=== PATIENT | male | born 1930 | race Caucasian/White ===

== ENCOUNTER 2018-08-08 15:12 | Observation (INO) | payer OTHER ==
[~2018-08-08] VITALS: Ht 172.7 cm; Wt 76.2 kg
[2018-08-08 16:09] LABS: BASOPHILS % (AUTO) 0.3 % (0.0-5.0); EOSINOPHILS % (AUTO) 0.8 % (0.0-8.0); HEMATOCRIT 41.1 % (42-54); LYMPHOCYTES % (AUTO) 8.2 % (21.0-51.0); MEAN CORPUSCULAR HEMOGLOBIN 33.8 pg (27.0-33.0); MEAN CORPUSCULAR HGB CONC 33.5 g/dL (32.0-36.0); MEAN CORPUSCULAR VOLUME 100.7 fL (79-99); MONOCYTES % (AUTO) 12.3 % (3.0-13.0); NEUTROPHILS % (AUTO) 78.4 % (40.0-77.0); PLATELET COUNT (AUTO) 189 K/uL (130-400); RED BLOOD CELL COUNT(AUTO) 4.08 MIL/uL (4.50-6.20); RED CELL DISTRIBUTION WIDTH 14.1 % (11.0-15.5); WHITE BLOOD COUNT (AUTO) 9.4 K/uL (4.8-10.8)
[2018-08-08 16:19] LABS: CREATININE 1.1 mg/dL (0.5-1.5); POTASSIUM 4.7 mmol/L (3.5-5.1)
[2018-08-08 16:22] LABS: INR 1.12 (0.85-1.15); PARTIAL THROMBOPLASTIN TIME 30.1 SEC (26.3-35.5); PROTHROMBIN TIME 11.7 SEC (9.6-11.6)
[2018-08-08] MEDS ORDERED: SODIUM CHLORIDE 0.9% 50 ML IV ONE (17:24)
[2018-08-08] MEDS ORDERED: ACETAMINOPHEN 325 MG TAB PO PRN ×2 (20:30→21:30)
[2018-08-08] MEDS ORDERED: ONDANSETRON HCL 4 MG/2 ML VIAL IV PRN (20:30)
[2018-08-08 21:25] VITALS: BP 136/81
[2018-08-08] MEDS: PHARMACY COMMUNICATION MISC SCH (21:30)
[2018-08-08] MEDS: SODIUM CHLORIDE 0.9% 1000ML 1,000 ML IV SCH (23:18)
[2018-08-08] MEDS: PANTOPRAZOLE SODIUM 80 MG in SODIUM CHLORIDE 0.9% 100 ML IV SCH (23:18)
[2018-08-09 00:25] VITALS: BP 90/61
[2018-08-09] MEDS: PHARMACY COMMUNICATION MISC SCH ×5 (01:30→17:44)
[2018-08-09 03:42] VITALS: BP 104/56
[2018-08-09 05:53] LABS: BASOPHILS % (AUTO) 0.3 % (0.0-5.0); EOSINOPHILS % (AUTO) 1.3 % (0.0-8.0); HEMATOCRIT 37.4 % (42-54); LYMPHOCYTES % (AUTO) 8.4 % (21.0-51.0); MEAN CORPUSCULAR HEMOGLOBIN 34.5 pg (27.0-33.0); MEAN CORPUSCULAR HGB CONC 34.5 g/dL (32.0-36.0); MONOCYTES % (AUTO) 13.2 % (3.0-13.0); NEUTROPHILS % (AUTO) 76.8 % (40.0-77.0); PLATELET COUNT (AUTO) 153 K/uL (130-400); RED BLOOD CELL COUNT(AUTO) 3.74 MIL/uL (4.50-6.20); RED CELL DISTRIBUTION WIDTH 13.9 % (11.0-15.5); WHITE BLOOD COUNT (AUTO) 7.4 K/uL (4.8-10.8)
[2018-08-09 06:01] LABS: INR 1.14 (0.85-1.15); PARTIAL THROMBOPLASTIN TIME 32.7 SEC (26.3-35.5); PROTHROMBIN TIME 11.9 SEC (9.6-11.6)
[2018-08-09] MEDS: SODIUM CHLORIDE 0.9% 1000ML 1,000 ML IV SCH ×3 (06:42→17:44)
[2018-08-09 08:00] VITALS: BP 137/71
[2018-08-09] MEDS ORDERED: DIATR MEGLU/DIATRIZOATE SODIUM 30 ML BOTTLE ONE (08:11)
[2018-08-09] MEDS: PANTOPRAZOLE SODIUM 80 MG in SODIUM CHLORIDE 0.9% 100 ML IV SCH ×2 (09:56→16:49)
[2018-08-09 12:00] VITALS: BP 129/76
--- NOTE | 2018-08-09 12:17 | NUR ---
DCP CM met with pt discussed dc plans. Pt is mostly independent prior to admission, lives at home alone, states he has a friend that assist who lives close by. Pt has an electric wheelchair, shower chair, walker, and wheelchair. Feels safe to go back home, still drives, states he takes care of his own stuff, fiend able to assist with transportation as necessary. DC plan to home once stable. CM to cont to follow up. Addendum: 08/09/18 at 1219 by ILENE OLVERA LVN CM Amended: Links added.
[2018-08-09 16:00] VITALS: BP 129/74
[2018-08-09] MEDS ORDERED: GABA300S PO (18:54)
[2018-08-09] MEDS ORDERED: CARV12.511 PO (18:54)
[2018-08-09] MEDS ORDERED: ATOR40TA69 PO (18:54)
[2018-08-09] MEDS ORDERED: VITA1CAP85 PO (18:54)
[2018-08-09] MEDS ORDERED: OXYB5TAB10 PO (18:54)
[2018-08-09] MEDS ORDERED: ISOS10TA8 PO (18:54)
[2018-08-09 20:00] VITALS: BP 138/82
--- NOTE | 2018-08-09 21:27 | NUR ---
DANY TEJADA CIVIL SERVICE WORKER FOR HOSPITALIST, PAGED VIA ANSWERING SERVICE AND VERIFIED TYLENOL ORDER SINCE PHARMACY FLAGGED MED DUE TO PT'S ALLERGY TO MED. NEW MED ORDER RECEIVED, PLEASE REFER TO CPOE.
[2018-08-09] MEDS ORDERED: TRAMADOL HCL 50 MG TABLET PO PRN (21:45)
--- NOTE | 2018-08-09 23:00 | NUR ---
INSTRUCT PT ASSISTED TO THE RESTROOM THEN BACK TO BED. PT HAD BM COLORED BROWN, SOFT. NO NOTED BLEEDING AT THIS TIME. RE-ITERATED TO BE NPO POST MIDNIGHT, VERBALIZES UNDERSTANDING. PT'S PIV ACCIDENTALLY CAME OFF VEIN WITH CATHETER INTACT. RE-INSERTED G18 TO LFA THEN CONTINUED TO INFUSE NS AND PROTONIX DRIP. KEPT RESTED IN BED. WILL CONTINUE TO MONITOR. CALL LIGHT WITHIN REACH.
[2018-08-10] VITALS (17 sets, daily range): BP systolic 90–159; BP diastolic 41–93
--- NOTE | 2018-08-10 02:00 | NUR ---
ROUNDS PT RESTING WELL, FAIRLY ASLEEP WITH RESPIRATIONS EVEN AND UNLABORED. KEPT UNDISTURBED FOR NOW. KEPT NPO. WILL CONTINUE TO MONITOR.
[2018-08-10] MEDS: PANTOPRAZOLE SODIUM 80 MG in SODIUM CHLORIDE 0.9% 100 ML IV SCH (02:07)
[2018-08-10] MEDS: SODIUM CHLORIDE 0.9% 1000ML 1,000 ML IV SCH (02:51)
[2018-08-10 04:14] LABS: HEMATOCRIT 35.9 % (42-54); MEAN CORPUSCULAR HEMOGLOBIN 34.2 pg (27.0-33.0); MEAN CORPUSCULAR HGB CONC 33.9 g/dL (32.0-36.0); MEAN CORPUSCULAR VOLUME 100.8 fL (79-99); PLATELET COUNT (AUTO) 155 K/uL (130-400); RED BLOOD CELL COUNT(AUTO) 3.56 MIL/uL (4.50-6.20); RED CELL DISTRIBUTION WIDTH 14.2 % (11.0-15.5); WHITE BLOOD COUNT (AUTO) 6.7 K/uL (4.8-10.8)
--- NOTE | 2018-08-10 06:25 | NUR ---
GI PT TAKEN DOWN BY GI STAFF TO GI LAB FOR EGD.
--- NOTE | 2018-08-10 07:40 | NUR ---
REPORT [facility] PRODUCTION PLANNING MANAGER CALLED REPORT AND MANAGER WOUND CARE WAS MADE AWARE THAT NO BLEEDING NOR ULCERS WERE SEEN BY MD. ORDERS INCLUDE TO START ON CLEAR LIQUIDS THEN ADVANCE TOLERATED AND TO FOLLOW UP WITH DR MCINTYRE IN 7 DAYS. V/S REPORTED INCLUDE MD=195/64,HR=80, RR=20 AND 97% ON RA. PT IS ALREADY AAOX3.
--- NOTE | 2018-08-10 07:50 | NUR ---
RECEIVE PT BACK IN ROOM, AAOX3, DENIES ANY PAINS AT THIS TIME. PT WANTING TO EAT ALREADY. EXPLAINED THAT HE WILL BE STARTED ON CLEAR LIQUIDS THEN WILL BE ADVANCED. PCP INFORMED THAT PT IS POST OP. CALLED [facility] IN GI LAB AND ASKED IF MD STILL IN THE HOSPITAL SINCE PROTONIX WAS NOT ADDRESSED BY . STATED SHE WILL CALL .
[2018-08-10] MEDS ORDERED: PANTOPRAZOLE SODIUM 40 MG TABLET.DR PO SCH (08:30)
[2018-08-10] MEDS ORDERED: CARVEDILOL 12.5 MG TABLET PO SCH (09:00)
[2018-08-10] MEDS ORDERED: GABAPENTIN 300 MG CAPSULE PO SCH (09:00)
[2018-08-10] MEDS ORDERED: OXYBUTYNIN CHLORIDE 5 MG TABLET PO SCH (09:00)
[2018-08-10] MEDS ORDERED: ISOSORBIDE MONONITRATE 20 MG TABLET PO SCH (09:00)
[2018-08-10] MEDS ORDERED: VITAMIN B COMPLEX 1 CAPSULE PO SCH (09:00)
[2018-08-10] MEDS ORDERED: PANT40TA25 PO (10:19)
[2018-08-10] MEDS ORDERED: ATORVASTATIN CALCIUM 40 MG TABLET PO SCH (21:00)
== END 2018-08-10 13:50 | disposition home or self-care (01) ==
LOC: EDH 15:12 → EDHIP 19:10 → 3AH 21:22
PROVIDERS: ADMIT Internal Medicine; ATTEND Internal Medicine
DX: K92.2 Gastrointestinal hemorrhage, unspecified (principal); D62 Acute posthemorrhagic anemia; E78.5 Hyperlipidemia, unspecified; I10 Essential (primary) hypertension; I25.10 Atherosclerotic heart disease of native coronary artery without angina pectoris; Z79.01 Long term (current) use of anticoagulants; Z86.73 Personal history of transient ischemic attack (TIA), and cerebral infarction without residual deficits
CPT/HCPCS: 36415 ×3; 43235; 74176; 80048; 82270; 85025 ×2; 85027; 85610 ×2; 85730 ×2; 86850; 86900; 86901; 93005; 96365; 96366 ×2; 99284; A4600; A6250; C9113 ×4; G0378 ×43; J7030; Q9963

== ENCOUNTER 2018-10-07 12:39 | Observation (INO) | payer OTHER ==
[~2018-10-07] VITALS: Ht 170.2 cm; Wt 77.1 kg
[~2018-10-07 12:39] MED LIST: ATOR40TA69 PO; CARV12.511 PO; GABA300S PO; ISOS10TA8 PO; OXYB5TAB10 PO; PANT40TA25 PO; VITA1CAP85 PO
[2018-10-07] MEDS ORDERED: ONDANSETRON HCL 4 MG/2 ML VIAL ONE (13:20)
[2018-10-07] MEDS ORDERED: CEFAZOLIN SODIUM 1 GM VIAL ONE (13:20)
[2018-10-07] MEDS ORDERED: MORPHINE SULFATE 4 MG/1ML SYG ONE (13:21)
[2018-10-07 13:44] LABS: BASOPHILS % (AUTO) 0.4 % (0.0-5.0); EOSINOPHILS % (AUTO) 0.9 % (0.0-8.0); HEMATOCRIT 32.5 % (42-54); LYMPHOCYTES % (AUTO) 8.6 % (21.0-51.0); MEAN CORPUSCULAR HEMOGLOBIN 34.4 pg (27.0-33.0); MEAN CORPUSCULAR HGB CONC 34.3 g/dL (32.0-36.0); MEAN CORPUSCULAR VOLUME 100.5 fL (79-99); MONOCYTES % (AUTO) 16.2 % (3.0-13.0); NEUTROPHILS % (AUTO) 73.9 % (40.0-77.0); PLATELET COUNT (AUTO) 175 K/uL (130-400); RED BLOOD CELL COUNT(AUTO) 3.24 MIL/uL (4.50-6.20); RED CELL DISTRIBUTION WIDTH 16.4 % (11.0-15.5); WHITE BLOOD COUNT (AUTO) 7.1 K/uL (4.8-10.8)
[2018-10-07] MEDS ORDERED: ONDANSETRON HCL MDV 20ML 2 MG/ML VIAL IVP PRN (13:45)
[2018-10-07 13:54] LABS: CREATININE 1.1 mg/dL (0.5-1.5); POTASSIUM 4.1 mmol/L (3.5-5.1)
[2018-10-07 13:55] LABS: INR 1.16 (0.85-1.15); PARTIAL THROMBOPLASTIN TIME 31.8 SEC (26.3-35.5); PROTHROMBIN TIME 12.1 SEC (9.6-11.6)
[2018-10-07 13:58] LABS: ALBUMIN 3.3 g/dL (3.5-5.0); BILIRUBIN,TOTAL 0.8 mg/dL (0.2-1.0); TOTAL PROTEIN, SERUM 6.8 g/dL (6.0-8.3)
[2018-10-07] MEDS ORDERED: HYDROCODONE/ACETAMINOPHEN 5/325 MG TAB PO PRN (14:45)
[2018-10-07 15:22] VITALS: BP 154/116
[2018-10-07] MEDS: MORPHINE SULFATE 2 MG/ML 1ML SYG IV PRN (16:25)
[2018-10-07] MEDS ORDERED: FURO20TA4 PO (17:40)
[2018-10-07] MEDS ORDERED: VIT1CAPS47 PO (17:40)
[2018-10-07] MEDS ORDERED: ISOS20TA7 PO (17:40)
[2018-10-07] MEDS ORDERED: CARV12.511 PO (17:40)
[2018-10-07] MEDS ORDERED: LISI-617 PO (17:40)
[2018-10-07] MEDS ORDERED: VITA1CAP85 PO (17:40)
[2018-10-07] MEDS ORDERED: APIX5TAB PO (17:40)
[2018-10-07] MEDS ORDERED: ATOR40TA69 PO (17:40)
[2018-10-07] MEDS ORDERED: PANT40TA25 PO (17:40)
[2018-10-07] MEDS ORDERED: OXYB5TAB10 PO (17:40)
[2018-10-07] MEDS ORDERED: FAMOTIDINE/PF 20 MG/2 ML VIAL IV ONE (19:25)
[2018-10-07] MEDS: SODIUM CHLORIDE 0.9% 1000ML 1,000 ML IV SCH ×2 (19:46→23:39)
[2018-10-07] MEDS: FAMOTIDINE/PF 20 MG/2 ML VIAL IV SCH (19:46)
[2018-10-07 20:08] VITALS: BP 109/74
[2018-10-07] MEDS ORDERED: KETOROLAC TROMETHAMINE 15MG/ML ONE (20:38)
[2018-10-07] MEDS ORDERED: KETOROLAC TROMETHAMINE 15MG/ML IV SCH (20:45)
--- NOTE | 2018-10-07 21:30 | NUR ---
DRESSING CHANGED DRESSING RIGHT 2 ND FINGER, OPEN LACERATION WITH SMALL AMOUNT OF BLOOD DRAINING, BLOOD CLOTS NOTED, APPLY 4X4,KERLIX 2 INCH AND COBAN , REINFORCE TEACHING KEEP ELEVATED ABOVE HEART, APPLY ICE PACKS
[2018-10-08] VITALS (22 sets, daily range): BP systolic 123–176; BP diastolic 49–94
[2018-10-08] MEDS: MORPHINE SULFATE 2 MG/ML 1ML SYG IV PRN (00:09)
--- NOTE | 2018-10-08 04:00 | NUR ---
DRESSING CHANGED DRESSING RIGHT HAND 2ND FINGER WITH OPEN LACERATION WITH SMALL AMOUNT OF SEROS SANGUEIOUS DRAINAGE, APPLY PRESSURE X 10M MINUTES, APPLY 4X4, 2 INCH KERLIX AND COBAN DRESSING, REINFORCE TEACHING TO ELEVATE RIGHT HAND ABOVE HEART, APPLY ICE PACKS TO RIGHT HAND
[2018-10-08 06:26] LABS: HEMATOCRIT 35.4 % (42-54); MEAN CORPUSCULAR HGB CONC 33.9 g/dL (32.0-36.0); MEAN CORPUSCULAR VOLUME 100.4 fL (79-99); PLATELET COUNT (AUTO) 172 K/uL (130-400); RED BLOOD CELL COUNT(AUTO) 3.52 MIL/uL (4.50-6.20); RED CELL DISTRIBUTION WIDTH 16.3 % (11.0-15.5); WHITE BLOOD COUNT (AUTO) 6.5 K/uL (4.8-10.8)
--- NOTE | 2018-10-08 08:00 | NUR ---
REFUSES TO REMOVE JEWELRY PRIOR TO PROCEDURE PATIENT HAS 1 YELLOW COLORED RING AND 1 YELLOW COLORED WITH BLACK STONE RING TO LEFT HAND. PATIENT REFUSES TO REMOVE 2 RINGS. I OFFERED TO CALL SECURITY FOR SAFEKEEPING OF PERSONAL ITEMS AND PATIENT REFUSED AND STATES "MY LOST HER JEWELRY AT A HOSPITAL SO I DON'T TRUST ANYONE ENOUGH TO TAKE [JEWELRY] OFF."
[2018-10-08] MEDS ORDERED: ENOXAPARIN SODIUM 30 MG/0.3 ML SQ SCH (09:00)
[2018-10-08] MEDS: FAMOTIDINE/PF 20 MG/2 ML VIAL IV SCH (09:43)
[2018-10-08] MEDS: SODIUM CHLORIDE 0.9% 1000ML 1,000 ML IV SCH (10:02)
--- NOTE | 2018-10-08 10:11 | NUR ---
DR. LEE CALLED MD TO REPORTS PATIENT TAKES HOME MEDICATION ELIQUIS 5MG PO DAILY AND PATIENT REPORTED LAST DOSE TAKEN 10/07/18 AT 0500. ALSO INFORMED MD OF PATIENT CBC AND COAGULATION VALUES. MD REPLIED IT WAS OKAY TO PROCEED WITH PLANNED PROCEDURE TODAY.
[2018-10-08] MEDS ORDERED: ROPIVACAINE 0.5% 5MG/ML 30ML IJ ONE (12:21)
[2018-10-08] MEDS ORDERED: LIDOCAINE HCL 2% 20ML ONE (12:21)
[2018-10-08] MEDS ORDERED: CEFAZOLIN SODIUM 1 GM VIAL ONE (12:30)
[2018-10-08] MEDS ORDERED: MIDAZOLAM HCL 1 MG/ML 2ML VIAL ONE (12:45)
[2018-10-08] MEDS ORDERED: PROPOFOL 10 MG/ML 20ML VIAL IV ONE (12:50)
--- NOTE | 2018-10-08 17:30 | NUR ---
DISCHARGE DISCHARGE TEACHING PROVIDED TO PATIENT. PATIENT IS ALERT AND ORIENTED. RIGHT HAND SECOND DIGIT GAUZE DRESSING DRY AND INTACT, NO DRAINAGE NOTED, RIGHT ARM SPLINT IN PLACE. REMOVED 20G IV FROM LEFT, FA CATHETER INTACT. PATIENT DISPLAYS NO INTEREST WHILE PROVIDED WITH DISCHARGE TEACHING AND HOME INSTRUCTIONS. PROVIDED TEACHING ON HOME CARE INSTRUCTIONS, WARNING SIGNS/SYMPTOMS, NEED TO WEAR RIGHT ARM BRACE, AND HOSPITALIST RECOMMENDATIONS FOR PAIN CONTROL. NEED TO CALL OFFICE OF DR. LEE TO SCHEDULE F/U APPT. REPEATED INFORMATION 3 TIMES AND PATIENT WOULD IGNORE WHAT I WAS SAYING AND ASK QUESTIONS TO A FRIEND THAT WAS PRESENT TO DRIVE PATIENT HOME. I QUESTIONED PATIENT ON DISCHARGE TEACHING PROVIDED IN AN ATTEMPT TO GATHER FEEDBACK IF PATIENT UNDERSTOOD. PATIENT WAS PURPOSELY AVOIDING QUESTIONS AND AVOIDING LISTENING TO MY INSTRUCTIONS. PATIENT TO BE DRIVEN HOME BY HIS FRIEND. PATIENT LEFT HIS DISCHARGE FOLDER WITH PATIENT DISCHARGE INSTRUCTIONS IN HIS ROOM AFTER HIS DEPARTURE.
== END 2018-10-08 17:02 | disposition home or self-care (01) ==
LOC: EDH 12:39 → EDHIP 13:20 → INTOOBSV 13:20 → 4BH 14:56
PROVIDERS: ADMIT Internal Medicine; ATTEND Internal Medicine
DX: S62.630B Displaced fracture of distal phalanx of right index finger, initial encounter for open fracture (principal); W31.2XXA Contact with powered woodworking and forming machines, initial encounter; Y93.89 Activity, other specified; Y92.89 Other specified places as the place of occurrence of the external cause; Y99.8 Other external cause status; E78.00 Pure hypercholesterolemia, unspecified; E78.5 Hyperlipidemia, unspecified; I10 Essential (primary) hypertension; I25.10 Atherosclerotic heart disease of native coronary artery without angina pectoris; Z79.01 Long term (current) use of anticoagulants
CPT/HCPCS: 26765; 36415 ×2; 73140; 80053; 85025; 85027; 85610; 85730; 96374; 96375; 96376; 99284; A4218; A4565; A4649; A4930; A6223; A6445; A6446; G0168; G0378 ×28; J0690 ×2; J1885; J2250; J2270; J2405; J2704; J2795; J3490 ×3; J7120

== ENCOUNTER 2019-11-17 17:04 | Inpatient (IN) | payer OTHER ==
[~2019-11-17] VITALS: Ht 167.6 cm; Wt 79.6 kg
[~2019-11-17 17:04] MED LIST changes: +APIX5TAB PO; +FURO20TA4 PO; -GABA300S PO; -ISOS10TA8 PO; +ISOS20TA7 PO; +LISI-617 PO; -OXYB5TAB10 PO; +OXYB5TAB15 PO; -PANT40TA25 PO; +PANT40TA54 PO; +VIT1CAPS47 PO
[2019-11-17 18:02] LABS: BASOPHILS % (AUTO) 0.3 % (0.0-5.0); EOSINOPHILS % (AUTO) 0.1 % (0.0-8.0); HEMATOCRIT 35.8 % (42-54); LYMPHOCYTES % (AUTO) 7.1 % (21.0-51.0); MEAN CORPUSCULAR HEMOGLOBIN 33.8 pg (27.0-33.0); MEAN CORPUSCULAR HGB CONC 33.8 g/dL (32.0-36.0); MONOCYTES % (AUTO) 10.7 % (3.0-13.0); NEUTROPHILS % (AUTO) 81.2 % (40.0-77.0); PLATELET COUNT (AUTO) 198 K/uL (130-400); RED BLOOD CELL COUNT(AUTO) 3.58 MIL/uL (4.50-6.20); RED CELL DISTRIBUTION WIDTH 14.4 % (11.0-15.5); WHITE BLOOD COUNT (AUTO) 12.1 K/uL (4.8-10.8)
[2019-11-17 18:12] LABS: CREATININE 1.9 mg/dL (0.5-1.5); POTASSIUM 5.1 mmol/L (3.5-5.1)
[2019-11-17 18:13] LABS: INR 1.22 (0.85-1.15); PARTIAL THROMBOPLASTIN TIME 40.1 SEC (26.3-35.5); PROTHROMBIN TIME 13.1 SEC (9.6-11.6)
[2019-11-17 18:16] LABS: ALBUMIN 3.1 g/dL (3.5-5.0); BILIRUBIN,TOTAL 0.9 mg/dL (0.2-1.0); TOTAL PROTEIN, SERUM 7.3 g/dL (6.0-8.3)
[2019-11-17] MEDS ORDERED: ACETAMINOPHEN 325 MG TAB PO PRN ×4 (20:45→22:00)
[2019-11-17] MEDS ORDERED: ONDANSETRON HCL 4 MG/2 ML VIAL IV PRN (20:45)
--- NOTE | 2019-11-17 22:45 | NUR ---
PATIENT ARRIVED ON UNIT. C/O EPIGASTRIC DISCOMFORT SCORE . C/O SOB WITH EXERTION. 02 SATS 98%. PATIENT AWARE HE IS BEDREST AND NPO PER ORDERS. TOLERATING IV NS AND IV ANTIBIOTIC. PATIENT STATED HE HAD MULTIPLE BMs PRIOR TO COMING TO HOSPITAL. BM DESCRIBED NOT FORMED BUT NOT DIARRHEA.WILL CONTINUE TO MONITOR. DID NOT BRING HOME MEDS. UNABLE TO RECONCILE MEDS.
[2019-11-17 23:00] VITALS: BP 121/63
[2019-11-18] MEDS: CEFTRIAXONE SODIUM 1 GM IVP SCH ×3 (02:00→20:36)
[2019-11-18 04:00] VITALS: BP 132/66
[2019-11-18 04:37] LABS: BASOPHILS % (AUTO) 0.3 % (0.0-5.0); EOSINOPHILS % (AUTO) 0.7 % (0.0-8.0); LYMPHOCYTES % (AUTO) 9.1 % (21.0-51.0); MEAN CORPUSCULAR HEMOGLOBIN 33.1 pg (27.0-33.0); MEAN CORPUSCULAR HGB CONC 33.3 g/dL (32.0-36.0); MEAN CORPUSCULAR VOLUME 99.4 fL (79-99); MONOCYTES % (AUTO) 13.9 % (3.0-13.0); NEUTROPHILS % (AUTO) 75.5 % (40.0-77.0); PLATELET COUNT (AUTO) 152 K/uL (130-400); RED BLOOD CELL COUNT(AUTO) 3.32 MIL/uL (4.50-6.20); RED CELL DISTRIBUTION WIDTH 14.6 % (11.0-15.5); WHITE BLOOD COUNT (AUTO) 10.3 K/uL (4.8-10.8)
[2019-11-18 05:10] LABS: ALANINE AMINOTRANSFERASE 21 U/L (12-78); ALBUMIN 2.8 g/dL (3.5-5.0); ASPARTATE AMINOTRANSFERASE 22 U/L (10-37); BILIRUBIN,TOTAL 0.6 mg/dL (0.2-1.0); CARBON DIOXIDE 22 mmol/L (21-32); CHLORIDE 103 mmol/L (101-111); CREATINE KINASE, TOTAL 62 U/L (21-232); CREATININE 1.7 mg/dL (0.5-1.5); GLOMERULAR FILTR. RATE CALC 41 mL/min (>60); GLUCOSE,RANDOM 106 mg/dL (70-105); MYOGLOBIN 91 ng/mL (10-92); POTASSIUM 4.7 mmol/L (3.5-5.1); SODIUM SERUM 135 mmol/L (136-145); THYROID STIMULATING HORMONE 0.49 uIU/mL (0.36-3.74); TROPONIN I < 0.04 ng/mL (0.00-0.06); UREA NITROGEN, BLOOD 32 mg/dL (7-18)
[2019-11-18 08:00] VITALS: BP 140/59
[2019-11-18] MEDS ORDERED: ASPIRIN 81 MG EC TAB PO SCH ×2 (09:00)
[2019-11-18] MEDS: FAMOTIDINE/PF 20 MG/2 ML VIAL IV SCH (10:04)
--- NOTE | 2019-11-18 10:27 | NUR ---
cm note met with patient and [facility] resides at home alone, in a mobile home, [facility] able to ambulate short distances, but mostly uses electric w/c, walker and a cane.to get around [facility] has adult children, but does not wish to provide information on them. [facility] his private pay provider is sima baker assists him throughout the day, lives next door, transports him to [facility] aas needed. [facility] wishes to return back to same home setting at tx. feels safe to return at tx. with his provider assisting him as needed. Addendum: 11/18/19 at 1031 by ANN THORNTON CM Amended: Links added.
[2019-11-18] MEDS ORDERED: FUROSEMIDE 10 MG/ML 2ML VIAL IV SCH (10:45)
[2019-11-18 11:12] LABS: BASOPHILS % (AUTO) 0.3 % (0.0-5.0); EOSINOPHILS % (AUTO) 0.9 % (0.0-8.0); MEAN CORPUSCULAR HEMOGLOBIN 33.8 pg (27.0-33.0); MEAN CORPUSCULAR HGB CONC 33.5 g/dL (32.0-36.0); MONOCYTES % (AUTO) 9.6 % (3.0-13.0); NEUTROPHILS % (AUTO) 82.7 % (40.0-77.0); PLATELET COUNT (AUTO) 196 K/uL (130-400); RED BLOOD CELL COUNT(AUTO) 3.96 MIL/uL (4.50-6.20); RED CELL DISTRIBUTION WIDTH 14.2 % (11.0-15.5); WHITE BLOOD COUNT (AUTO) 11.8 K/uL (4.8-10.8)
[2019-11-18] MEDS: LISINOPRIL 5 MG TABLET PO SCH (11:34)
[2019-11-18 11:57] VITALS: BP 142/65
[2019-11-18 12:34] LABS: BILIRUBIN,URINE Negative (NEGATIVE); COLOR,URINE Yellow (YELLOW); GLUCOSE, URINE (UA) Negative (NEGATIVE); KETONES,URINE Negative (NEGATIVE); LEUKOCYTE ESTERASE ,URINE Trace (NEGATIVE); NITRATE,URINE Negative (NEGATIVE); OCCULT BLOOD,URINE Negative (NEGATIVE); PROTEIN,URINE Negative (NEGATIVE)
[2019-11-18 12:36] LABS: APPEARANCE,URINE Clear (CLEAR)
[2019-11-18 12:46] LABS: BACTERIA,URINE None Seen /HPF (None Seen); MUCUS,URINE Few LPF (None Seen); RBC,URINE None Seen /HPF (0-1); SQUAMOUS EPITHELIAL CELL,UR 0-2 /HPF (0-2); WBC,URINE 0-1 /HPF (0-1)
[2019-11-18 16:00] VITALS: BP 131/67
[2019-11-18] MEDS: SODIUM CHLORIDE 0.9% 1000ML 1,000 ML IV SCH ×2 (17:00→20:44)
[2019-11-18 19:39] VITALS: BP 138/65
[2019-11-18] MEDS: APIXABAN 5 MG TABLET PO SCH (20:36)
[2019-11-18] MEDS: ISOSORBIDE MONONITRATE 20 MG TABLET PO SCH (20:37)
[2019-11-18 23:43] VITALS: BP 113/51
--- NOTE | 2019-11-19 03:51 | NUR ---
PATIENT DENIES CHEST PAIN OR SOB. TOLERATING IV ANTIBIOTICS. RESTING IN BED. WILL CONTINUE TO MONITOR.
[2019-11-19 03:56] VITALS: BP 118/56
[2019-11-19 05:03] LABS: CREATININE 1.3 mg/dL (0.5-1.5); POTASSIUM 4.1 mmol/L (3.5-5.1)
[2019-11-19 08:00] VITALS: BP 137/64
[2019-11-19] MEDS: FUROSEMIDE 20 MG TABLET PO SCH (09:26)
[2019-11-19] MEDS: APIXABAN 5 MG TABLET PO SCH (09:26)
[2019-11-19] MEDS: LISINOPRIL 5 MG TABLET PO SCH (09:27)
[2019-11-19] MEDS: FAMOTIDINE/PF 20 MG/2 ML VIAL IV SCH (09:27)
[2019-11-19] MEDS: ATORVASTATIN CALCIUM 40 MG TABLET PO SCH (09:27)
[2019-11-19] MEDS: ISOSORBIDE MONONITRATE 20 MG TABLET PO SCH ×2 (09:27→21:01)
[2019-11-19] MEDS: CEFTRIAXONE SODIUM 1 GM IVP SCH ×2 (11:39→21:01)
[2019-11-19 12:00] VITALS: BP 130/65
[2019-11-19] MEDS: SODIUM CHLORIDE 0.9% 1000ML 1,000 ML IV SCH ×2 (13:00→21:01)
[2019-11-19 16:00] VITALS: BP 142/70
[2019-11-19 20:43] VITALS: BP 132/50
[2019-11-19 23:57] VITALS: BP 136/60
--- NOTE | 2019-11-20 04:00 | NUR ---
STATUS Pt resting quietly,respirations even and unlabored.No ectopy reported per physics technical officer.
[2019-11-20 04:03] VITALS: BP 122/54
[2019-11-20 05:19] LABS: BASOPHILS % (AUTO) 0.4 % (0.0-5.0); EOSINOPHILS % (AUTO) 3.4 % (0.0-8.0); HEMATOCRIT 30.6 % (42-54); LYMPHOCYTES % (AUTO) 7.9 % (21.0-51.0); MEAN CORPUSCULAR HEMOGLOBIN 33.4 pg (27.0-33.0); MEAN CORPUSCULAR VOLUME 98.4 fL (79-99); MONOCYTES % (AUTO) 15.9 % (3.0-13.0); PLATELET COUNT (AUTO) 199 K/uL (130-400); RED BLOOD CELL COUNT(AUTO) 3.11 MIL/uL (4.50-6.20); RED CELL DISTRIBUTION WIDTH 13.9 % (11.0-15.5); WHITE BLOOD COUNT (AUTO) 6.7 K/uL (4.8-10.8)
[2019-11-20 05:32] LABS: CREATININE 1.1 mg/dL (0.5-1.5); POTASSIUM 3.7 mmol/L (3.5-5.1)
[2019-11-20 07:30] VITALS: BP 117/51
[2019-11-20] MEDS: ATORVASTATIN CALCIUM 40 MG TABLET PO SCH (09:34)
[2019-11-20] MEDS: ISOSORBIDE MONONITRATE 20 MG TABLET PO SCH ×2 (09:35→19:59)
[2019-11-20] MEDS: LISINOPRIL 5 MG TABLET PO SCH (09:35)
[2019-11-20] MEDS: FUROSEMIDE 20 MG TABLET PO SCH (09:35)
[2019-11-20] MEDS: FAMOTIDINE/PF 20 MG/2 ML VIAL IV SCH (09:35)
[2019-11-20 11:00] VITALS: BP 140/55
[2019-11-20] MEDS: CEFTRIAXONE SODIUM 1 GM IVP SCH ×2 (11:26→22:27)
[2019-11-20] MEDS: TRAMADOL HCL 50 MG TABLET PO SCH (12:27)
[2019-11-20] MEDS ORDERED: VANCOMYCIN 1GM+NS 250ML 250 ML IV PRN (13:45)
[2019-11-20 16:00] VITALS: BP 151/65
[2019-11-20 20:00] VITALS: BP 156/63
[2019-11-21] VITALS: BP 135/67
--- NOTE | 2019-11-21 01:59 | NUR ---
PREP Pt clipped on the chest arear per staff.Bedbath rendered,npo after midnight.
[2019-11-21 04:00] VITALS: BP 144/69
[2019-11-21] MEDS: SODIUM CHLORIDE 0.9% 1000ML 1,000 ML IV SCH (04:13)
[2019-11-21 07:19] VITALS: BP 134/67
[2019-11-21] MEDS: ISOSORBIDE MONONITRATE 20 MG TABLET PO SCH ×2 (09:00→20:24)
[2019-11-21] MEDS: LISINOPRIL 5 MG TABLET PO SCH (09:00)
[2019-11-21] MEDS: FUROSEMIDE 20 MG TABLET PO SCH (09:00)
[2019-11-21] MEDS: ATORVASTATIN CALCIUM 40 MG TABLET PO SCH (09:00)
[2019-11-21 09:02] LABS: BASOPHILS % (AUTO) 0.8 % (0.0-5.0); EOSINOPHILS % (AUTO) 3.3 % (0.0-8.0); HEMATOCRIT 32.1 % (42-54); LYMPHOCYTES % (AUTO) 8.9 % (21.0-51.0); MEAN CORPUSCULAR HGB CONC 33.6 g/dL (32.0-36.0); MEAN CORPUSCULAR VOLUME 100.9 fL (79-99); MONOCYTES % (AUTO) 16.9 % (3.0-13.0); NEUTROPHILS % (AUTO) 69.8 % (40.0-77.0); PLATELET COUNT (AUTO) 191 K/uL (130-400); RED BLOOD CELL COUNT(AUTO) 3.18 MIL/uL (4.50-6.20); RED CELL DISTRIBUTION WIDTH 13.9 % (11.0-15.5); WHITE BLOOD COUNT (AUTO) 6.3 K/uL (4.8-10.8)
[2019-11-21 09:10] LABS: POTASSIUM 3.9 mmol/L (3.5-5.1)
[2019-11-21 09:38] LABS: INR 1.06 (0.85-1.15); PROTHROMBIN TIME 11.4 SEC (9.6-11.6)
[2019-11-21] MEDS: CEFTRIAXONE SODIUM 1 GM IVP SCH ×2 (10:26→21:50)
[2019-11-21] MEDS: FAMOTIDINE/PF 20 MG/2 ML VIAL IV SCH (10:26)
[2019-11-21 11:00] VITALS: BP 153/72
[2019-11-21] MEDS: TRAMADOL HCL 50 MG TABLET PO SCH (11:30)
[2019-11-21 15:29] VITALS: BP 147/74
[2019-11-21 20:13] VITALS: BP 161/72
[2019-11-22] VITALS (14 sets, daily range): BP systolic 100–173; BP diastolic 56–88
[2019-11-22] MEDS: FAMOTIDINE/PF 20 MG/2 ML VIAL IV SCH (09:44)
[2019-11-22] MEDS: FUROSEMIDE 20 MG TABLET PO SCH (09:44)
[2019-11-22] MEDS: LISINOPRIL 5 MG TABLET PO SCH (09:44)
[2019-11-22] MEDS: SODIUM CHLORIDE 0.9% 1000ML 1,000 ML IV SCH ×2 (09:44→20:38)
[2019-11-22] MEDS: ISOSORBIDE MONONITRATE 20 MG TABLET PO SCH ×2 (09:44→20:38)
[2019-11-22] MEDS: ATORVASTATIN CALCIUM 40 MG TABLET PO SCH (09:44)
[2019-11-22] MEDS: CEFTRIAXONE SODIUM 1 GM IVP SCH ×2 (10:14→20:38)
[2019-11-22] MEDS ORDERED: BUPIVACAINE/PF 0.25% 30ML VIAL IJ ONE (11:42)
[2019-11-22] MEDS ORDERED: LIDOCAINE HCL 1% MDV 50ML VIAL ONE (11:42)
[2019-11-22] MEDS ORDERED: MIDAZOLAM HCL 1 MG/ML 2ML VIAL ONE ×3 (11:42→13:02)
[2019-11-22] MEDS ORDERED: MEPERIDINE-PF 25 MG/ML SYG ONE ×3 (11:42→13:02)
[2019-11-22] MEDS ORDERED: VANCOMYCIN 1GM+NS 250ML 250 ML IV ONE (11:43)
[2019-11-22] MEDS ORDERED: IODIXANOL 320 MG/ML 100 ML VIAL ONE (12:22)
--- NOTE | 2019-11-22 14:35 | NUR ---
PATIENT RECEIVED BACK FROM DRIVER SERVICE TECHNICIAN AT THIS TIME; SITE IS CLEAN AND DRY WITH SMALL AMOUNT OF BLOOD NOTED TO DRESSING; PATIENT IS LETHARGIC BUT AROUSABLE; WILL CONTINUE TO MONITOR
--- NOTE | 2019-11-22 16:30 | NUR ---
SITE IS CLEAN AND DRY WITH SMALL AMOUNT OF BLOOD NOTED TO DRESSING; PATIENT STATES NO PAIN AT THIS TIME; WILL CONTINUE TO MONITOR
[2019-11-22] MEDS ORDERED: HYDRALAZINE HCL 20 MG/ML VIAL IV PRN (17:45)
[2019-11-22] MEDS ORDERED: TRAMADOL HCL 50 MG TABLET PO PRN (18:30)
[2019-11-22] MEDS: TRAMADOL HCL 50 MG TABLET PO SCH ×2 (18:30→18:31)
--- NOTE | 2019-11-22 18:30 | NUR ---
LEFT UPPER CHEST INCISION SITE SWELLING NOTED; DR LUNSFORD NOTIFIED AND ORDERED TRAMADOL NEEDED FOR PAIN IN ORDER TO HOLD PRESSURE ON THE SITE; PATIENT IS UNABLE TO TOLERATE HELD PRESSURE AT THIS TIME; TRAMADOL GIVEN AND PRESSURE TO BE HELD ONCE TRAMADOL HELPS WITH THE PAIN
[2019-11-22] MEDS ORDERED: TRAMADOL HCL 50 MG TABLET ONE (18:31)
--- NOTE | 2019-11-22 18:50 | NUR ---
REPORT GIVEN TO ONCOMING NURSE, MELLY; HE IS AWARE OF PATIENT DEVELOPING HEMATOMA AND PRESSURE NEEDING TO BE HELD ONCE TRAMADOL HAS BEEN EFFECTIVE; DR LUNSFORD TO BE NOTIFIED IF PATIENT IS STILL UNABLE TO TOLERATE PRESSURE BEING HELD ON SITE.
[2019-11-23] MEDS: TRAMADOL HCL 50 MG TABLET PO SCH ×3 (00:40→12:42)
[2019-11-23 03:32] LABS: BASOPHILS % (AUTO) 0.5 % (0.0-5.0); EOSINOPHILS % (AUTO) 0.7 % (0.0-8.0); HEMATOCRIT 33.7 % (42-54); LYMPHOCYTES % (AUTO) 6.5 % (21.0-51.0); MEAN CORPUSCULAR HGB CONC 32.9 g/dL (32.0-36.0); MEAN CORPUSCULAR VOLUME 100.3 fL (79-99); MONOCYTES % (AUTO) 9.6 % (3.0-13.0); NEUTROPHILS % (AUTO) 82.1 % (40.0-77.0); PLATELET COUNT (AUTO) 205 K/uL (130-400); RED BLOOD CELL COUNT(AUTO) 3.36 MIL/uL (4.50-6.20); RED CELL DISTRIBUTION WIDTH 13.6 % (11.0-15.5); WHITE BLOOD COUNT (AUTO) 8.8 K/uL (4.8-10.8)
[2019-11-23 03:44] LABS: CREATININE 1.1 mg/dL (0.5-1.5); POTASSIUM 4.4 mmol/L (3.5-5.1)
[2019-11-23 04:00] VITALS: BP 116/65
[2019-11-23 07:34] VITALS: BP 138/62
[2019-11-23] MEDS: FUROSEMIDE 20 MG TABLET PO SCH (09:04)
[2019-11-23] MEDS: ATORVASTATIN CALCIUM 40 MG TABLET PO SCH (09:04)
[2019-11-23] MEDS: LISINOPRIL 5 MG TABLET PO SCH (09:04)
[2019-11-23] MEDS: ISOSORBIDE MONONITRATE 20 MG TABLET PO SCH (09:04)
[2019-11-23] MEDS: FAMOTIDINE/PF 20 MG/2 ML VIAL IV SCH (09:05)
[2019-11-23] MEDS: CEFTRIAXONE SODIUM 1 GM IVP SCH (11:21)
[2019-11-23 11:29] VITALS: BP 143/69
[2019-11-23 15:24] VITALS: BP 151/72
[2019-11-23] MEDS ORDERED: METO25 PO (16:46)
[2019-11-23] MEDS ORDERED: ISOS20TA7 PO (16:47)
--- NOTE | 2019-11-23 17:54 | NUR ---
DISCHARGE DISCHARGE INSTRUCTIONS GIVEN TO PATIENT, VERBALIZED UNDERSTANDING. THOROUGHLY EXPLAINED WHICH MEDICATIONS ARE CONTINUED OR CHANGED ORDERED BY DR KHAN. PATIENT HAS AN APPOINTMENT TO SEE DR LUNSFORD ON 12/[address] KHAN ON 12/03 AT 11AM. PATIENT HAS A SMALL HEMATOMA TO LEFT CHEST POST PACEMAKER, MD'S ARE AWARE. HEMATOMA HAS NOT CHANGED SINCE LASTNIGHT, CURRENT HEMOGLOBIN 11.8. EXPLAINED TO PATIENT WHAT SIGNS AND SYMPTOMS TO LOOK FOR AND TOLD HIM TO CALL DR LUNSFORD CHASE IF HEMATOMA GROWS IN SIZE, SEVERE PAIN, FEVER, BLEEDING IS NOTED. IV'S REMOVED, COVERED WITH BANDAIDS. TELEPAK DISCONTINUED.
== END 2019-11-23 18:40 | disposition home or self-care (01) | DRG 853 ==
LOC: EDH 17:04 → EDHIP 20:44 → 4BH 21:09 → UNDODISIN 21:57
PROVIDERS: ADMIT Hospitalist; ATTEND Hospitalist
PROC: 0JH607Z Insertion of Cardiac Resynchronization Pacemaker Pulse Generator into Chest Subcutaneous Tissue and Fascia, Open Approach (ICD-10-PCS; principal; 2019-11-22)
PROC: 02HK3JZ Insertion of Pacemaker Lead into Right Ventricle, Percutaneous Approach (ICD-10-PCS; 2019-11-22)
PROC: 02H63JZ Insertion of Pacemaker Lead into Right Atrium, Percutaneous Approach (ICD-10-PCS; 2019-11-22)
PROC: B5171ZZ Fluoroscopy of Left Subclavian Vein using Low Osmolar Contrast (ICD-10-PCS; 2019-11-22)
PROC: B51V1ZZ Fluoroscopy of Other Veins using Low Osmolar Contrast (ICD-10-PCS; 2019-11-22)
DX: A41.9 Sepsis, unspecified organism (principal); I50.31 Acute diastolic (congestive) heart failure; J98.11 Atelectasis; N39.0 Urinary tract infection, site not specified; N17.9 Acute kidney failure, unspecified; I49.5 Sick sinus syndrome; E86.0 Dehydration; I11.0 Hypertensive heart disease with heart failure; K21.9 Gastro-esophageal reflux disease without esophagitis; E78.5 Hyperlipidemia, unspecified; G30.9 Alzheimer's disease, unspecified; F02.80 Dementia in other diseases classified elsewhere, unspecified severity, without behavioral disturbance, psychotic disturbance, mood disturbance, and anxiety; G40.909 Epilepsy, unspecified, not intractable, without status epilepticus; I25.10 Atherosclerotic heart disease of native coronary artery without angina pectoris; I44.0 Atrioventricular block, first degree; Z60.2 Problems related to living alone; Z79.01 Long term (current) use of anticoagulants; Z87.891 Personal history of nicotine dependence; Z88.6 Allergy status to analgesic agent; Z88.8 Allergy status to other drugs, medicaments and biological substances
CPT/HCPCS: 33208; 33225; 36415; 71045; 76604; 80048; 80053; 81001; 82270; 82550; 83605; 83630; 83874; 83880; 84145; 84443; 84484; 85014; 85018; 85025; 85610; 85730; 87046; 87177; 87338; 93005; 93306; 93356; 93971; 97039; 99156; 99157; C1769; G0378; J0360; J0696; J1940; J2175; J2250; J2405; J3370; J3490; J7030; Q9967

== ENCOUNTER 2021-01-23 07:42 | Observation (INO) | payer OTHER ==
[2021-01-23] VITALS (8 sets, daily range): BP systolic 81–156; BP diastolic 55–110
[~2021-01-23] VITALS: Ht 167.6 cm; Wt 77.1 kg
[~2021-01-23 07:42] MED LIST changes: -APIX5TAB PO; -CARV12.511 PO; -ISOS20TA7 PO; +ISOS20TA85 PO; -LISI-617 PO; +LISI-809 PO; +METO25 PO
[2021-01-23 08:12] LABS: BASOPHILS % (AUTO) 0.7 % (0.0-5.0); EOSINOPHILS % (AUTO) 0.3 % (0.0-8.0); LYMPHOCYTES % (AUTO) 11.5 % (21.0-51.0); MEAN CORPUSCULAR HGB CONC 32.3 g/dL (32.0-36.0); MEAN CORPUSCULAR VOLUME 102.1 fL (79-99); MONOCYTES % (AUTO) 13.9 % (3.0-13.0); NEUTROPHILS % (AUTO) 73.1 % (40.0-77.0); PLATELET COUNT (AUTO) 224 K/uL (130-400); RED BLOOD CELL COUNT(AUTO) 3.82 MIL/uL (4.50-6.20); RED CELL DISTRIBUTION WIDTH 15.6 % (11.0-15.5); WHITE BLOOD COUNT (AUTO) 9.6 K/uL (4.8-10.8)
[2021-01-23] MEDS ORDERED: 0.9%NACL 100ML IV ONE (08:30)
[2021-01-23 08:35] LABS: ALANINE AMINOTRANSFERASE 54 U/L (12-78); ALBUMIN 3.1 g/dL (3.5-5.0); ASPARTATE AMINOTRANSFERASE 55 U/L (10-37); CARBON DIOXIDE 26 mmol/L (21-32); CHLORIDE 99 mmol/L (101-111); CREATINE KINASE, TOTAL 66 U/L (21-232); CREATININE 3.5 mg/dL (0.5-1.5); GLOMERULAR FILTR. RATE CALC 18 mL/min (>60); GLUCOSE,RANDOM 167 mg/dL (70-105); MYOGLOBIN 260 ng/mL (10-92); POTASSIUM 5.1 mmol/L (3.5-5.1); SODIUM SERUM 136 mmol/L (136-145); TOTAL PROTEIN, SERUM 7.8 g/dL (6.0-8.3); TROPONIN I < 0.04 ng/mL (0.00-0.06); UREA NITROGEN, BLOOD 48 mg/dL (7-18)
[2021-01-23 09:00] LABS: INR 1.54 (0.85-1.15); PROTHROMBIN TIME 16.1 SEC (9.6-11.6)
[2021-01-23 09:01] LABS: PARTIAL THROMBOPLASTIN TIME 35.6 SEC (26.3-35.5)
[2021-01-23] MEDS ORDERED: METOPROLOL TARTRATE 1 MG/ML 5ML VIAL IV ONE ×2 (09:10→09:30)
[2021-01-23] MEDS ORDERED: 0.9%NACL 1000ML 1,000 ML IV ONE (09:26)
[2021-01-23] MEDS ORDERED: 0.9% NACL 500ML IV.SOLN 500 ML IV SCH (09:30)
[2021-01-23 09:32] LABS: B-TYPE NATRIURETIC PEPTIDE 2370 pg/mL (0-100)
[2021-01-23] MEDS ORDERED: FURO40TA5 PO (09:52)
[2021-01-23] MEDS ORDERED: APIX5TAB PO (09:52)
[2021-01-23] MEDS ORDERED: METO50TA18 PO (09:52)
[2021-01-23] MEDS ORDERED: ATOR40TA71 PO (09:52)
[2021-01-23] MEDS ORDERED: VIT-32 PO (09:52)
[2021-01-23] MEDS ORDERED: AMIO200T6 PO (09:52)
[2021-01-23] MEDS ORDERED: DOPAMINE 800MG/D5 250ML 250 ML IV ONE (11:00)
[2021-01-23] MEDS ORDERED: DOPAMINE HCL 400 MG/D5%-WATER 250 ML IV PRN (11:00)
[2021-01-23] MEDS ORDERED: M.V.I. IV [ADULT] 10 ML in 0.9%NACL 1000ML 1,000 ML IV SCH (11:00)
[2021-01-23] MEDS ORDERED: ACETAMINOPHEN 325 MG TAB PO PRN ×2 (11:00)
[2021-01-23] MEDS ORDERED: 0.9%NACL 1000ML 1,000 ML IV SCH (11:00)
[2021-01-23] MEDS ORDERED: VANCOMYCIN PROTOCOL PER PHARMACY IV SCH (11:00)
[2021-01-23] MEDS ORDERED: ONDANSETRON 4MG INJ IV PRN (11:00)
[2021-01-23 11:21] LABS: RETICULOCYTE % (AUTO) 2.19 % (0.42-2.23)
[2021-01-23 11:30] LABS: INR 1.59 (0.85-1.15); PROTHROMBIN TIME 16.6 SEC (9.6-11.6)
[2021-01-23] MEDS ORDERED: VANCOMYCIN 1.25GM/NS 250ML IVPB SCH ×2 (11:30)
[2021-01-23] MEDS ORDERED: CHLORDIAZEPOXIDE HCL 25 MG CAP PO PRN (11:30)
[2021-01-23] MEDS ORDERED: PHENYLEPHRINE HCL 50 MG in 0.9% NACL 250ML 245 ML IV PRN (11:30)
[2021-01-23] MEDS ORDERED: PHARMACY COMMUNICATION MISC PRN (11:30)
[2021-01-23] MEDS ORDERED: COMPOUND IV REFRIGERATED 1 EACH IVSOLN MISC PRN (11:30)
[2021-01-23 11:32] LABS: PARTIAL THROMBOPLASTIN TIME 37.6 SEC (26.3-35.5); PHOSPHORUS 5.7 mg/dL (2.5-4.9); URIC ACID 7.3 mg/dL (2.6-7.2)
[2021-01-23 11:35] LABS: AMMONIA < 3 umol/L (11-32); HEMOGLOBIN A1C 5.6 % (4.0-6.0)
[2021-01-23 11:40] LABS: APPEARANCE,URINE Cloudy (CLEAR); BILIRUBIN,URINE Small (NEGATIVE); COLOR,URINE Dark Yellow (YELLOW); GLUCOSE, URINE (UA) Negative (NEGATIVE); KETONES,URINE Trace mg/dL (NEGATIVE); LEUKOCYTE ESTERASE ,URINE Large (NEGATIVE); NITRATE,URINE Negative (NEGATIVE); OCCULT BLOOD,URINE Negative (NEGATIVE); PROTEIN,URINE POS 1+ mg/dL (NEGATIVE)
[2021-01-23 11:43] LABS: CREATININE,URINE RANDOM 170 mg/dL (30-135); PROTEIN,URINE RANDOM 59.7 mg/dL (0-11.9); SODIUM,URINE RANDOM 17 mmol/l (40-220)
[2021-01-23 11:46] LABS: % IRON SATURATION 16.7 % (30-44)
[2021-01-23 11:52] LABS: BACTERIA,URINE Few /HPF (None Seen); RBC,URINE 0-1 /HPF (0-1); SQUAMOUS EPITHELIAL CELL,UR Rare /HPF (0-2)
[2021-01-23] MEDS ORDERED: AMIODARONE 900MG VIAL 900 MG in DEXTROSE 5%-WATER 500 ML IV SCH (12:30)
[2021-01-23] MEDS ORDERED: AMIODARONE 900MG VIAL 360 MG in DEXTROSE 5%-WATER 200 ML IV SCH (12:30)
[2021-01-23] MEDS ORDERED: AMIODARONE 900MG VIAL 450 MG in DEXTROSE 5%-WATER 250 ML IV SCH (12:30)
[2021-01-23] MEDS ORDERED: AMIODARONE 150MG VIAL 150 MG in DEXTROSE 5%-WATER 100 ML IV SCH (12:30)
[2021-01-23] MEDS ORDERED: CEFEPIME HCL 1 GM VIAL IVP SCH (14:00)
[2021-01-23 14:19] LABS: ABG BASE EXCESS -6.8 mmol/L (-2.0-3.0); ABG HCO3 15.7 mmol/L (21.0-28.0); ABG OXYGEN SATURATION 96.7 % (95.0-99.0); ABG PCO2 25 mmHg (35-48)
[2021-01-23] MEDS ORDERED: FENTANYL CITRATE PF 50 MCG/1 ML 2ML VIAL IVP PRN (16:00)
[2021-01-23] MEDS ORDERED: HEPARIN 25,000 UNITS/250ML D5W 250 ML IV SCH (16:00)
[2021-01-23] MEDS ORDERED: DEXTROSE 5%-LACTATED RINGERS 1,000 ML IV SCH (16:30)
[2021-01-23] MEDS ORDERED: FAMOTIDINE 20MG VIAL IV SCH (21:00)
[2021-01-24] MEDS ORDERED: THIAMINE HCL 100 MG/ML 2ML VIAL IV SCH (09:00)
[2021-01-24] MEDS ORDERED: FOLIC ACID 1 MG TABLET PO SCH (09:00)
[2021-01-24] MEDS ORDERED: THIAMINE HCL 100 MG/ML 2ML VIAL IM SCH (09:00)
[2021-01-24] MEDS ORDERED: MULTIVITAMIN TABLET PO SCH (09:00)
[2021-01-24] MEDS ORDERED: Vitamin B Complex/Vit C/Folic Acid PO SCH (09:00)
== END 2021-01-23 18:30 ==
LOC: EDH 07:42 → EDHIP 10:52 → INTOOBSV 10:52 → 2CH 15:09
PROVIDERS: ADMIT Internal Medicine; ATTEND Internal Medicine
DX: I95.89 Other hypotension (principal); R00.0 Tachycardia, unspecified; N17.9 Acute kidney failure, unspecified; I49.5 Sick sinus syndrome; K27.9 Peptic ulcer, site unspecified, unspecified as acute or chronic, without hemorrhage or perforation; D53.9 Nutritional anemia, unspecified; F10.20 Alcohol dependence, uncomplicated; E87.2 Acidosis; I10 Essential (primary) hypertension; M19.90 Unspecified osteoarthritis, unspecified site; K85.90 Acute pancreatitis without necrosis or infection, unspecified; Z95.0 Presence of cardiac pacemaker; Y90.9 Presence of alcohol in blood, level not specified
CPT/HCPCS: 36415; 36600; 71045; 74176; 76770; 80053; 81001; 82140; 82550; 82570; 82728; 82803; 83036; 83540; 83550; 83605; 83735; 83874; 83880; 84100; 84145; 84156; 84300; 84484 ×2; 84550; 85025; 85045; 85378; 85610 ×2; 85730 ×2; 87040 ×2; 87088; 93005 ×2; 96361; 96365; 96366; 96367; 96368; 96375; 99291; G0378; J0282 ×3; J0692; J1265; J1644; J3010; J3370; J3490 ×2; J7030; J7050; J7060 ×3